=== PATIENT | female | born 1995 | race African-American/Black ===

== ENCOUNTER 2020-04-21 13:18 | Inpatient (IN) | payer MEDICAID, SELFPAY ==
[2020-04-21] VITALS (7 sets, daily range): BP systolic 90–114; BP diastolic 48–68; PULSE 58–85; RESP 14–16; TEMP 36–36.7; O2SAT 90–99; BMI 42.5; BMI 42.6; BMI 35.9
--- NOTE | 2020-04-21 13:52 | ED.VIS.GEN ---
History of Present Illness Chief Complaint: Substance Abuse Informant: Patient Narrative: 24-year-old female with history of fentanyl and heroin abuse presenting for detox. She spoke with [facility] before she came. Patient states that her last use was yesterday however she has been doing a rinse. She believes last time she did it was at 10:00 AM. Patient states she has no significant medical problems. Last detox was in February. Past Medical History - Allergies and Home Meds Allergies/Adverse Reactions: Allergies No Known Allergies Allergy (Verified 04/21/20 13:22) Primary Care Physician: NOT,DEFINED [NON-STAFF] - Prior records reviewed: Yes Past Medical History: - - Patient denies significant medical history Lives: With Family Smoking Status: Unknown if ever smoked Alcohol: None Drugs: Heroin, - - Fentanyl Review of Systems General: Denies: Chills, Fever, Sweats Eyes: Denies: Visual changes - bilaterally, Diplopia ENT: Denies: Rhinorrhea, Sore throat Cardiovascular: Denies: Chest pain, Palpitations Respiratory: Denies: Dyspnea, Cough, Dyspnea on exertion Gastrointestinal: Denies: Abdominal pain, Nausea, Vomiting, Diarrhea, Melena, Hematochezia Genitourinary: Denies: Dysuria, Hematuria, Frequency Musculoskeletal: Denies: Back pain, Extremity Pain Skin: Denies: Rash, Wounds Neurological: Denies: Headache, Weakness, Numbness Psych: Denies: Depression, Anxiety, Suicidal thoughts, Suicidal ideations, -, - Physical Exam Vital Signs/Narrative: Vital Signs Temp Pulse Resp BP Pulse Ox 04/21/20 13:19 96.8 F L 85 16 106/65 95 Inital Vital Signs reviewed: Yes General: Well nourished, No Acute Distress, - Head: Normocephalic, Atraumatic Eyes: Perrl, EOMI ENT: Moist mucous membranes, No rhinorrhea Cardiovascular: Regular rate, Regular rhythm Respiratory: No distress, CTA bilaterally Skin: Normal color, No rash. Negative for: Cyanosis, Diaphoresis Neurological: Alert, Oriented x3, Cranial nerves II-XII grossly intact Psychological: Normal Mood, - - Drowsy but awake and responding to questions. Diagnostic/Tx/Re-eval - Medical Decision Making 24-year-old female presenting for detox of fentanyl and heroin. Patient states her last real use was yesterday however she has been doing no rinse. She states this is where you put water in the container that was holding the drugs and you rinse it around and then inject that. She states her last use of this was 10 AM. When asked why she appears drowsy she states she was up all night with her child. Patient states she spoke to [facility] before coming in she has a plan for outpatient follow-up. Patient discussed with hospitalist who admitted the patient for detox. Hospitalist did request CBC, CMP, EtOH, drug abuse screen. This was ordered. Hospitalist will follow this up on the medical floor. Patient stable on admission. Impression: 1. Opiate abuse 2. For opioid detox ED Disposition - Plan for ED Patient: Referrals: NOT,DEFINED [NON-STAFF] -
--- NOTE | 2020-04-21 14:37 | NURSING ---
122 MED SURG PAINTSIL OPIATE WITHDRAWAL
--- NOTE | 2020-04-21 14:40 | CM.ED ---
SOCIAL WORK Reason for Referral: Substance Abuse- patient requesting detox from heroin. Patient presents to [facility] ER for detox from heroin last use was this morning. Patient met with [facility] earlier and plan was for residential treatment. Patient requires detox prior to treatment. Call to [facility], spoke with Mayte to update on patient's admission. Mayte to update Melita who will be in to assess patient tomorrow. Plan: Admit to [facility], NEWS REPORTER, ROSS LIFT OPERATOR
[2020-04-21 14:50] LABS: Absolute Lymphocyte Count 1.64 X10^3/uL (0.83-4.51); Absolute Neutrophil Count 4.1 X10^3/uL (2.0-7.7); Basophil# 0.03 X10^3/uL; Basophil% 0.4 % (0-1); Eosinophil# 0.02 X10^3/uL; Eosinophils% 0.3 % (0-5); Hematocrit 32.6 % (37-47); Lymphocyte # 1.64 X10^3/ul (4.0); Mean Corp Hgb Conc 30.7 g/dL (32-36); Mean Corpuscular Hgb 27.1 pg (27.0-32.0); Mean Corpuscular Volume 88.3 fL (81-99); Mean Platelet Vol. 12.9 fl (6.2-12.0); Monocyte# 1.04 X10^3/uL; Monocyte% 15.2 % (0-10); NRBC Flagged by Analyzer 0 % (0-5); Neutrophil # 4.09 X10^3/uL (2.7-7.7); Neutrophil % 59.8 % (47-70); Platelet Count 157 K/mm3 (150-450); RBC Distribution Width CV 15.1 % (11.6-14.6); RBC Distribution Width SD 48.9 fl (35.1-43.9); Red Blood Count 3.69 M/mm3 (4.2-5.4); White Blood Count 6.8 K/mm3 (4.4-11.0)
[2020-04-21 15:06] LABS: ALB/GLOB Ratio 0.8 RATIO (0.9-2.4); AST(SGOT) 19 U/L (15-37); Alanine Aminotransfer ALT/SGPT 30 U/L (13-56); Albumin, Serum 3.4 g/dL (3.2-5.0); Alkaline Phosphatase 89 U/L (45-117); Anion Gap 5 (5-15); BUN 10 mg/dL (7-18); BUN/Creat Ratio 13.9 RATIO (10-20); Calcium,Total 8.4 mg/dL (8.5-10.1); Chloride 108 mmol/L (98-107); Creatinine, Serum 0.72 mg/dL (0.55-1.02); EST Glomerular Filtration Rate 107 mL/min (>60); Est Glom Filt Rate - Afr Amer 129 mL/min (>60); Estimated Creatinine Clearance 122.59 ml/min; Glucose 87 mg/dL (74-106); Potassium 3.9 mmol/L (3.5-5.1); Protein, Total 7.4 g/dL (6.4-8.2); Sodium Level 140 mmol/L (136-145)
--- NOTE | 2020-04-21 15:17 | PCM.HP.STD ---
<Divya Aldrich - Last Filed: 04/21/20 15:57> Problem List (1) Opiate abuse, continuous Status: Acute (2) Marijuana abuse Status: Acute History of Present Illness Date of Admission: 04/21/20 Chief Complaint: Opiate withdrawal program The patient is a 24 year old F who presents today for assistance with withdrawing from opioids. Patient states her last full strength use was 3 PM yesterday however this morning she did a rinse. Patient describes this as putting water in the container that held heroin/fentanyl and then injecting this water. Upon entering room patient is lethargic, will occasionally arouse with shaking but immediately falls back asleep. Patient also reports smoking marijuana on a daily basis. Denies use of any other illicit drugs. Patient denies fever, chills, chest pain, shortness of breath, nausea, vomiting, diarrhea. 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 Denies: Chills, Fever, Weight Change HEENT: Denies: Head Aches, Sinus Congestion, Sinus Drainage Cardiovascular: Denies: Chest Pain, Palpitations Respiratory: Denies: Cough, Shortness of breath at rest, Sputum production Gastrointestinal: Denies: Abdominal Pain, Nausea, Vomiting Genitourinary: Denies: Dysuria Musculoskeletal: Denies: Joint Pain, Joint Tenderness Skin: Denies: Rash, Wounds Neurological: Denies: Numbness, Tingling, Focal weakness Psychiatric: Denies: Anxiety, Depression, Homicidal Ideations, Suicidal Ideations Hematologic/ Lymphatic: Denies: Easy Bruising, Easy Bleeding VTE Information - Inpt Only VTE Present on Admission: No VTE Mechan Device Prophylaxis: SCD's, None VTE Pharm Prophylaxis ordered?: No Patient Problems: Active and Suspected Problems Opiate abuse, continuous (Acute) Marijuana abuse (Acute) - Physical Exam Vitals/I&O's: Vital Signs Temp Pulse Resp BP Pulse Ox 97.3 F L 63 14 90/48 L 97 04/21/20 15:08 04/21/20 15:08 04/21/20 15:08 04/21/20 15:08 04/21/20 15:08 Oxygen Delivery Method Room Air Weight: 235 lb 14.314 oz Body Mass Index (BMI) 35.9 General: Oriented x3, Lethargic, Non-Cooperative HEENT: Atraumatic, PERRLA, EOMI, Normocephalic Neck: Supple, No JVD, Negative Carotid Bruits Lungs: Clear to auscultation, Normal air movement Cardiovascular: Regular rate, Regular Rhythm, Normal S1, Normal S2, No murmurs Abdomen: Bowel Sounds Present, Soft, Non Tender Extremities: No edema, Capillary Refill Less than 3 Seconds Skin: No rashes, No breakdown Musculoskeletal: No Tenderness to Palpation of Joints or Extremities Neurological: Cranial nerves II-XII grossly intact Laboratory Results 04/21/20 14:45: WBC 6.8, RBC 3.69 L, Hgb 10.0 L, Hct 32.6 L, MCV 88.3, MCH 27.1, MCHC 30.7 L, RDW Std Deviation 48.9 H, RDW Coeff of Carmen 15.1 H, Plt Count 157, MPV 12.9 H, Immature Gran % (Auto) 0.300, Neut % (Auto) 59.8, Lymph % (Auto) 24.0, [place] % (Auto) 15.2 H, Eos % (Auto) 0.3, Baso % (Auto) 0.4, Absolute Neuts (auto) 4.1, Absolute Lymphs (auto) 1.64, Nucleated RBC % 0 04/21/20 14:45: Sodium 140, Potassium 3.9, Chloride 108 H, Carbon Dioxide 27.0, Anion Gap 5, BUN 10, Creatinine 0.72, Estim Creat Clear Calc 122.59, Est GFR (MDRD) Af Amer 129, Est GFR (MDRD) Non-Af 107, BUN/Creatinine Ratio 13.9, Glucose 87, Calcium 8.4 L, Total Bilirubin 0.50, AST 19, ALT 30, Alkaline Phosphatase 89, Total Protein 7.4, Albumin 3.4, Globulin 4.0, Albumin/Globulin Ratio 0.8 L 04/21/20 14:45: Ethyl Alcohol Pending Current Medications Acetaminophen (Acetaminophen 500 Mg Tablet) 500 mg PO Q4H PRN PRN PRN Reason: Temp > 100.4 F Buprenorphine HCl (Buprenorphine Hcl 2 Mg Tab.Subl) 0 mg SL Q8H ELAINE; Taper Stop: 04/24/20 15:13 Clonidine (Clonidine Hcl 0.1 Mg Tablet) 0.1 mg PO Q8H PRN PRN PRN Reason: RESTLESSNESS Dicyclomine HCl (Dicyclomine 10 Mg Capsule) 20 mg PO Q6H PRN PRN PRN Reason: Abdominal Discomfort Gabapentin (Gabapentin 300 Mg Capsule) 300 mg PO Q8H PRN PRN PRN Reason: moderate to severe anxiety Hydroxyzine Pamoate (Hydroxyzine Rose 25 Mg Capsule) 50 mg PO Q6H PRN PRN PRN Reason: mild anxiety Ibuprofen (Ibuprofen 600 Mg Tablet) 600 mg PO Q8H PRN PRN PRN Reason: PAIN Loperamide HCl (Loperamide 2 Mg Capsule) 2 mg PO Q4H PRN PRN PRN Reason: LOOSE STOOLS Methocarbamol (Methocarbamol 750 Mg Tablet) 1,500 mg PO Q6H PRN PRN PRN Reason: MUSCLE SPASM Nicotine (Nicotine 21 Mg Patch) 21 mg TD DAILY ELAINE Ondansetron HCl (Ondansetron 8 Mg Tablet) 8 mg PO Q8H PRN PRN PRN Reason: NAUSEA Sodium Chloride (0.9% Saline Lock 10 Ml Syringe) 10 - 40 ml IV UD PRN PRN Reason: SALINE FLUSH Trazodone HCl (Trazodone 100 Mg Tablet) 100 mg PO QHS PRN PRN PRN Reason: INSOMNIA Assessment/Plan All Active Problems Opiate abuse, continuous (Acute) Marijuana abuse (Acute) 1. Opioid dependence-we will initiate buprenorphine taper and supportive meds per protocol. As patient is currently lethargic and hard to arouse we will give Narcan 2 mg intranasally x1 and obtain ABG. DVT prophylaxis-Not indicated This patient was seen by JASMEET Wagner under the supervision of Dr. Bunn. <Jayshree Bunn - Last Filed: 04/21/20 20:03> History of Present Illness The patient is a 24 year old F [] Past Medical History Allergies No Known Allergies Allergy (Verified 04/21/20 13:22) - Physical Exam Vitals/I&O's: Vital Signs Temp Pulse Resp BP Pulse Ox 97.7 F L 72 16 114/68 90 04/21/20 19:51 04/21/20 19:51 04/21/20 19:51 04/21/20 19:51 04/21/20 19:51 Oxygen Delivery Method Room Air Weight: 107 kg Body Mass Index (BMI) 35.9 Intake and Output for Last 24 Hours 04/19/20 04/20/20 04/21/20 23:59 23:59 23:59 Intake Total 0 / 0 Output Total 0 / 0 Balance 0 / 0 Laboratory Results 04/21/20 14:10: Urine Opiates Screen NEGATIVE, Urine Methadone Screen NEGATIVE, Ur Barbiturates Screen NEGATIVE, Ur Phencyclidine Scrn NEGATIVE, Ur Amphetamines Screen NEGATIVE, U Methamphetamin-MDMA NEGATIVE, U Benzodiazepines Scrn NEGATIVE, Urine Cocaine Screen POSITIVE H, U Cannabinoids Screen NEGATIVE, Ur Drug Screen Comment 04/21/20 14:45: WBC 6.8, RBC 3.69 L, Hgb 10.0 L, Hct 32.6 L, MCV 88.3, MCH 27.1, MCHC 30.7 L, RDW Std Deviation 48.9 H, RDW Coeff of Carmen 15.1 H, Plt Count 157, MPV 12.9 H, Immature Gran % (Auto) 0.300, Neut % (Auto) 59.8, Lymph % (Auto) 24.0, [place] % (Auto) 15.2 H, Eos % (Auto) 0.3, Baso % (Auto) 0.4, Absolute Neuts (auto) 4.1, Absolute Lymphs (auto) 1.64, Nucleated RBC % 0 04/21/20 14:45: Sodium 140, Potassium 3.9, Chloride 108 H, Carbon Dioxide 27.0, Anion Gap 5, BUN 10, Creatinine 0.72, Estim Creat Clear Calc 122.59, Est GFR (MDRD) Af Amer 129, Est GFR (MDRD) Non-Af 107, BUN/Creatinine Ratio 13.9, Glucose 87, Calcium 8.4 L, Total Bilirubin 0.50, AST 19, ALT 30, Alkaline Phosphatase 89, Total Protein 7.4, Albumin 3.4, Globulin 4.0, Albumin/Globulin Ratio 0.8 L 04/21/20 14:45: Ethyl Alcohol < 3.0 04/21/20 16:19: Specimen Type ART, Sample Site R Radial, pH 7.36, Bicarbonate Actual 27.5 H, Total CO2 29, Base Excess 2, O2 Saturation 97, ABG pCO2 48.3 H, ABG pO2 90, Barney Test Positive, O2 Delivery Device Room Air Current Medications Acetaminophen (Acetaminophen 500 Mg Tablet) 500 mg PO Q4H PRN PRN PRN Reason: Temp > 100.4 F Buprenorphine HCl (Buprenorphine Hcl 2 Mg Tab.Subl) 0 mg SL Q8H ELAINE; Taper Stop: 04/24/20 15:13 Clonidine (Clonidine Hcl 0.1 Mg Tablet) 0.1 mg PO Q8H PRN PRN PRN Reason: RESTLESSNESS Dicyclomine HCl (Dicyclomine 10 Mg Capsule) 20 mg PO Q6H PRN PRN PRN Reason: Abdominal Discomfort Gabapentin (Gabapentin 300 Mg Capsule) 300 mg PO Q8H PRN PRN PRN Reason: moderate to severe anxiety Hydroxyzine Pamoate (Hydroxyzine Rose 25 Mg Capsule) 50 mg PO Q6H PRN PRN PRN Reason: mild anxiety Ibuprofen (Ibuprofen 600 Mg Tablet) 600 mg PO Q8H PRN PRN PRN Reason: PAIN 1-10 Loperamide HCl (Loperamide 2 Mg Capsule) 2 mg PO Q4H PRN PRN PRN Reason: LOOSE STOOLS Methocarbamol (Methocarbamol 750 Mg Tablet) 1,500 mg PO Q6H PRN PRN PRN Reason: MUSCLE SPASM Nicotine (Nicotine 21 Mg Patch) 21 mg TD DAILY ELAINE Ondansetron HCl (Ondansetron 8 Mg Tablet) 8 mg PO Q8H PRN PRN PRN Reason: NAUSEA Sodium Chloride (0.9% Saline Lock 10 Ml Syringe) 10 - 40 ml IV UD PRN PRN Reason: SALINE FLUSH Trazodone HCl (Trazodone 100 Mg Tablet) 100 mg PO QHS PRN PRN PRN Reason: INSOMNIA Assessment/Plan This patient was seen in conjunction with Miranda Matias NP. I have independently interviewed and examined the patient and reviewed pertinent historical, laboratory, and other data. Please refer to her note for patient's presentation, findings, and recommendations. 24-year-old with past medical history of polysubstance use comes in requesting for stabilization from acute opioid withdrawal. Patient admits to using heroin/fentanyl. She reportedly did a 'heroin rinse morning. Patient was reportedly very lethargic in the emergency department. Patient denies any use of cocaine. Her urine tox was positive for cocaine. At the time of being seen, she was arousable. She denied any complaints at the moment. She stated that she did not sleep well the night before. Vitals were reviewed -stable Physical Exam: Gen: Lethargic, easily arousable not pale, not jaundiced, alert oriented x3 CVS:HS I +II, regular, no murmurs RESP: CTA GI: BS present and normal, nontender, no palpable organs EXT:No edema Labs reviewed: ASSESSMENT: 1. Chronic opioid dependence with impending acute opiate withdrawal 2. Polysubstance use disorder, advised to quit Meds reviewed Plan: Continue to monitor on the buprenorphine withdrawal protocol. Inpatient E&M: 78067 Init Hosp L2
[2020-04-21 15:19] LABS: Alcohol, Blood (Medical)-Serum < 3.0 mg/dL
[2020-04-21 15:36] LABS: Amphetamine Urine VISTA NEGATIVE (<1000 ng/mL); Barbiturate Urine VISTA NEGATIVE (< 200 ng/mL); Benzodiazepine Urine VISTA NEGATIVE (< 200 ng/mL); Cocaine Urine VISTA POSITIVE (< 300 ng/mL); Ecstacy Urine VISTA NEGATIVE (< 500 ng/mL); Methadone Urine VISTA NEGATIVE (< 300 ng/mL); PCP Urine VISTA NEGATIVE (< 25 ng/mL); THC Urine VISTA NEGATIVE (< 50 ng/mL); Vista UDS pH Range 6
--- NOTE | 2020-04-21 15:41 | NURSING ---
COWS assessment not completed due to patient being asleep per orders
[2020-04-21 16:25] LABS: Allen Test Positive; Base Excess 2 mmol/L (-2 to +2); Bicarbonate 27.5 mmol/L (22-26); Blood Gas Specimen Type ART; O2 Delivery Device Room Air; PO2 90 mmHG (75-100); SITE R Radial; SO2 97 % (95-99); Total Carbon Dioxide 29 mmol/L; pCO2 48.3 mmHg (35-45); pH 7.36 (7.35-7.45)
[2020-04-21] MEDS: Methocarbamol 750 MG Tablet 1500 MG PO (23:21)
[2020-04-22 01:58] VITALS: BP 128/79; PULSE 81; RESP 18; TEMP 37.1; O2SAT 100
[2020-04-22] MEDS: Dicyclomine 10 MG Capsule 20 MG PO (02:05)
[2020-04-22] MEDS: Ibuprofen 600 MG Tablet PO (02:06)
[2020-04-22] MEDS: Ondansetron 8 MG Tablet PO ×2 (02:06→20:38)
[2020-04-22] MEDS: hydrOXYzine PAM 25 MG Capsule 50 MG PO ×2 (02:06→21:47)
[2020-04-22] MEDS: cloNIDine HCl 0.1 MG Tablet PO (02:07)
[2020-04-22] MEDS: traZODone 100 MG Tablet PO ×2 (02:19→21:48)
[2020-04-22 08:00] VITALS: BP 100/60; PULSE 64; RESP 16; TEMP 36.6; O2SAT 96
--- NOTE | 2020-04-22 08:13 | PN_ITS ---
Subjective: Chief complaint: Follow-up after admission for acute opioid withdrawal. Patient seen and examined. No acute events overnight. This morning, she was sleepy. She was not willing to wake up to be examined. After I informed the patient that I have to talk to her and examined her, she woke up and she allowed me to examine her. She mentioned that she could not sleep last night and she is trying to sleep this morning. Her vital signs are stable. - Physical Exam Vitals/I&O's: Vital Signs Temp Pulse Resp BP Pulse Ox 98.8 F 81 18 128/79 H 100 04/22/20 01:58 04/22/20 01:58 04/22/20 01:58 04/22/20 01:58 04/22/20 01:58 Oxygen Delivery Method Room Air Weight: 235 lb 14.314 oz Body Mass Index (BMI) 35.9 Intake and Output for Last 24 Hours 04/20/20 04/21/20 04/22/20 23:59 23:59 23:59 Intake Total 200 / 200 200 / 200 Output Total 0 / 0 Balance 200 / 200 200 / 200 General: Alert, Oriented x3, Cooperative, No apparent distress HEENT: Atraumatic, PERRLA, EOMI, Normocephalic Oral: Moist Mucosa, No Gingival or Mucosal Lesions/ Ulcerations Neck: Supple, No JVD, Negative Carotid Bruits, Trachea Midline, Thyroid Normal Size and Texture Lungs: Clear to auscultation, No rhonchi, No wheeze, No rales Cardiovascular: Regular rate, Regular Rhythm, Normal S1, Normal S2, PMI Normal Abdomen: Bowel Sounds Present, Soft, Non Tender, Non-Distended, No Hepato- splenomegaly Extremities: No clubbing, No cyanosis, No edema Skin: No rashes, No breakdown Lymphatic: No Cervical, Supraclavicular, or Inguinal Adenopathy Neurological: Cranial nerves II-XII grossly intact, Neuro grossly intact Psych/Mental Status: Appropriate, Flat Affect Laboratory Results 04/21/20 14:10: Urine Opiates Screen NEGATIVE, Urine Methadone Screen NEGATIVE, Ur Barbiturates Screen NEGATIVE, Ur Phencyclidine Scrn NEGATIVE, Ur Amphetamines Screen NEGATIVE, U Methamphetamin-MDMA NEGATIVE, U Benzodiazepines Scrn NEGATIVE, Urine Cocaine Screen POSITIVE H, U Cannabinoids Screen NEGATIVE, Ur Drug Screen Comment 04/21/20 14:45: WBC 6.8, RBC 3.69 L, Hgb 10.0 L, Hct 32.6 L, MCV 88.3, MCH 27.1, MCHC 30.7 L, RDW Std Deviation 48.9 H, RDW Coeff of Carmen 15.1 H, Plt Count 157, MPV 12.9 H, Immature Gran % (Auto) 0.300, Neut % (Auto) 59.8, Lymph % (Auto) 24.0, [place] % (Auto) 15.2 H, Eos % (Auto) 0.3, Baso % (Auto) 0.4, Absolute Neuts (auto) 4.1, Absolute Lymphs (auto) 1.64, Nucleated RBC % 0 04/21/20 14:45: Sodium 140, Potassium 3.9, Chloride 108 H, Carbon Dioxide 27.0, Anion Gap 5, BUN 10, Creatinine 0.72, Estim Creat Clear Calc 122.59, Est GFR (MDRD) Af Amer 129, Est GFR (MDRD) Non-Af 107, BUN/Creatinine Ratio 13.9, Glucose 87, Calcium 8.4 L, Total Bilirubin 0.50, AST 19, ALT 30, Alkaline Phosphatase 89, Total Protein 7.4, Albumin 3.4, Globulin 4.0, Albumin/Globulin Ratio 0.8 L 04/21/20 14:45: Ethyl Alcohol < 3.0 04/21/20 16:19: Specimen Type ART, Sample Site R Radial, pH 7.36, Bicarbonate Actual 27.5 H, Total CO2 29, Base Excess 2, O2 Saturation 97, ABG pCO2 48.3 H, ABG pO2 90, Barney Test Positive, O2 Delivery Device Room Air Current Medications Acetaminophen (Acetaminophen 500 Mg Tablet) 500 mg PO Q4H PRN PRN PRN Reason: Temp > 100.4 F Buprenorphine HCl (Buprenorphine Hcl 2 Mg Tab.Subl) 4 mg SL Q8H ELAINE; Taper Stop: 04/24/20 22:29 Last Admin: 04/22/20 05:30 Dose: Not Given Documented by: Clonidine (Clonidine Hcl 0.1 Mg Tablet) 0.1 mg PO Q8H PRN PRN PRN Reason: RESTLESSNESS Last Admin: 04/22/20 02:07 Dose: 0.1 mg Documented by: Dicyclomine HCl (Dicyclomine 10 Mg Capsule) 20 mg PO Q6H PRN PRN PRN Reason: Abdominal Discomfort Last Admin: 04/22/20 02:05 Dose: 20 mg Documented by: Gabapentin (Gabapentin 300 Mg Capsule) 300 mg PO Q8H PRN PRN PRN Reason: moderate to severe anxiety Hydroxyzine Pamoate (Hydroxyzine Rose 25 Mg Capsule) 50 mg PO Q6H PRN PRN PRN Reason: mild anxiety Last Admin: 04/22/20 02:06 Dose: 50 mg Documented by: Ibuprofen (Ibuprofen 600 Mg Tablet) 600 mg PO Q8H PRN PRN PRN Reason: PAIN 1-10 Last Admin: 04/22/20 02:06 Dose: 600 mg Documented by: Loperamide HCl (Loperamide 2 Mg Capsule) 2 mg PO Q4H PRN PRN PRN Reason: LOOSE STOOLS Methocarbamol (Methocarbamol 750 Mg Tablet) 1,500 mg PO Q6H PRN PRN PRN Reason: MUSCLE SPASM Last Admin: 04/21/20 23:21 Dose: 1,500 mg Documented by: Nicotine (Nicotine 21 Mg Patch) 21 mg TD DAILY ELAINE Ondansetron HCl (Ondansetron 8 Mg Tablet) 8 mg PO Q8H PRN PRN PRN Reason: NAUSEA Last Admin: 04/22/20 02:06 Dose: 8 mg Documented by: Sodium Chloride (0.9% Saline Lock 10 Ml Syringe) 10 - 40 ml IV UD PRN PRN Reason: SALINE FLUSH Trazodone HCl (Trazodone 100 Mg Tablet) 100 mg PO QHS PRN PRN PRN Reason: INSOMNIA Last Admin: 04/22/20 02:19 Dose: 100 mg Documented by: Medical Necessity - Tobacco Use Tobacco Use: Non-smoker, Secondhand Assessment/Plan All Active Problems Acute opioid withdrawal (Acute) This is a 24 years old female patient presented to the emergency room requesting admission for acute opioid withdrawal for medical stabilization. #1 acute opiate withdrawal: She is on tapering Subutex, as needed Catapres, Tylenol, Bentyl, Neurontin, Vistaril, Imodium, methocarbamol and trazodone. Her vital signs are stable. Routine blood work was remarkable for hemoglobin of 10 g/dL which is chronic, otherwise normal. LFT was unremarkable. Urine drug screen was positive for cocaine. Blood alcohol level was less than 3. Plan to continue same treatment, consult [facility] program. #2 tobacco abuse: NicoDerm patch. #3 DVT prophylaxis: Low risk patient, no prophylaxis indicated. This note was generated with [employer] dictation software. It may contain incorrect words, spelling, and punctuation that were not noted in checking the note before signing. Inpatient E&M: 44181 Subs Hosp L2
--- NOTE | 2020-04-22 09:20 | ADDICTION ---
This typewriters functional tester attempted to meet with PT in her room. PT woke briefly but did not answer verbally respond outside of moans and grunts. This typewriters functional tester will attempt to meet with PT at next visit on 04.23.20.
--- NOTE | 2020-04-22 10:43 | CASEMGMT ---
Mary from [facility] said she arranged for patient to get picked up on 04-26 at 10a. She needs to be at the main entrance of [facility] at 10a. Plan: d/c to residential with [facility] assisting. She will get picked up on 04-26 at 10 via [facility]. Esme DOMINIQUE MSW
[2020-04-22 14:00] VITALS: BP 118/62; PULSE 60; RESP 16; TEMP 36.7; O2SAT 96
[2020-04-22] MEDS: Methocarbamol 750 MG Tablet 1500 MG PO (18:54)
[2020-04-22] MEDS: Gabapentin 300 MG Capsule PO (18:54)
[2020-04-22 20:28] VITALS: BP 117/55; PULSE 109; RESP 18; TEMP 37.3; O2SAT 95
--- NOTE | 2020-04-22 20:40 | NURSING ---
Addendum entered by Kassandra Rabago 04/22/20 20:44: Pt states Maybe I'll take it (subutex) tomorrow. Original Note: Pt educated on Subutex and how it improves withdrawal symptoms. Pt refusing to take Subutex stating it has made her feel sick in the past/ PRN's offered; pt agreeable to taking zofran at this time. Will continue to monitor.
[2020-04-22] MEDS: Acetaminophen 500 MG Tablet PO (21:47)
[2020-04-23 02:42] VITALS: BP 92/55; PULSE 72; RESP 16; TEMP 37.1; O2SAT 97
[2020-04-23] MEDS: Methocarbamol 750 MG Tablet 1500 MG PO (05:42)
--- NOTE | 2020-04-23 05:48 | NURSING ---
Pt encouraged to take 0630 dose of Subutex; pt refused dose. Pt c/o muscle aches to BLE- methocarbamol offered and given.
[2020-04-23 08:14] VITALS: BP 94/56; PULSE 67; RESP 16; TEMP 36.7; O2SAT 97
--- NOTE | 2020-04-23 09:25 | ADDICTION ---
This hand sign writer met with PT in her room to complete ASAM, MSE, DUDIT assessments and to plan for discharge. All assessments completed, faxed to [facility] and placed in PT's chart. PT to discharge on 04/26 with a direct admit planned to [facility]. This hand sign writer spoke with PT regarding her refusal of detox medication and the impacts of not following the [facility] program rules. PT reports that she has been put in precipitated withdrawal while using Subutex in the past and does not want to use this medication at this time. This hand sign writer informed PT that [facility] informed this hand sign writer that her hospitalist may not allow her to stay until Sunday if she is not following protocol, which also may impact her ability to direct admit to [facility]. PT states that she does not want to take her Subutex and understands the potential consequences.
--- NOTE | 2020-04-23 10:22 | NURSING ---
SPOKE TO PT ABOUT REFUSING SUBUTEX PART OF TREATMENT. INFORMED THAT IF SHE CONTINUES TO REFUSE SUBUTEX SHE CANNOT STAY AT THE HOSPITAL PER DR SAUCEDO. PT ASKING IF SHE CAN STILL GO TO [facility]IDENT[facility] IF SHE DOES NOT STAY AT HOSP. PT INFORMED THAT HER ACCEPTANCE MAY NOT BE GUARANTEED. PLACED CALL TO K[facility]ARI WITH [facility] TO CLARIFY. AWAITING CALL BACK. DR SAUCEDO SPOKE TO PT WELL ABOUT COMPLIANCE WITH TREATMENT IN HOSPITAL.
--- NOTE | 2020-04-23 12:20 | DS.PCM_ITS ---
Discharge Date and Diagnosis Date of Admission: 04/21/20 Date of Discharge: 04/23/20 - Primary Discharge Diagnosis Acute Problems: Acute opioid withdrawal admitted for medical stabilization, he left the hospital AGAINST MEDICAL ADVICE. - Secondary Discharge Diagnosis Chronic Problems: Chronic Problems Opiate abuse, continuous (Chronic) Marijuana abuse (Chronic) Hospital Course and Treatment Operations: None Procedures: None Summary of Care Provided: The patient is a 24 year old F presented to the emergency room requesting admission for acute opioid withdrawal for medical stabilization. Patient was admitted to the [facility] floor and started on opioid withdrawal protocol with tapering Subutex, as needed Catapres, Tylenol, Bentyl, Neurontin, Vistaril, Imodium, methocarbamol and trazodone. Routine blood work was remarkable for chronic anemia, otherwise normal. Her urine drug screen was positive for cocaine. Blood alcohol level was less than 3. During this hospital stay, patient refused to take Subutex after admission and she thinks that she gets significant withdrawal symptoms from Subutex if she started taking it. She mentioned that in the past, she has used Subutex and she did get withdrawal symptoms on stopping it. Initially, she was evaluated by [address] [place] [address] and the plan was to keep the patient in the hospital and this coming Sunday and she will go to inpatient residential treatment at [address] [place] [address]. Since patient has been refusing to take Subutex, she was given the option to take Subutex, stay until Sunday and go to the [address] [place] [address] residential treatment or to leave AMA today and go to the residential treatment this coming Sunday, April 26, 2020. Patient decided to leave the hospital against AMA, and refused to take Subutex and she decided to go to inpatient residential treatment at [address] [place] [address] this coming Sunday. Patient left the hospital AGAINST MEDICAL ADVICE. - Physical Exam Vitals/I&O's: Vital Signs Temp Pulse Resp BP Pulse Ox 98.1 F 67 16 94/56 L 97 04/23/20 08:14 04/23/20 08:14 04/23/20 08:14 04/23/20 08:14 04/23/20 08:14 Oxygen Delivery Method Room Air Weight: 235 lb 14.314 oz Body Mass Index (BMI) 35.9 Intake and Output for Last 24 Hours 04/21/20 04/22/20 04/23/20 23:59 23:59 23:59 Intake Total 200 / 200 200 / 500 300 / 300 Output Total 0 / 0 Balance 200 / 200 200 / 500 300 / 300 General: Alert, Oriented x3, Cooperative, No apparent distress HEENT: Atraumatic, PERRLA, EOMI, Normocephalic Oral: Moist Mucosa, No Gingival or Mucosal Lesions/ Ulcerations Neck: Supple, No JVD, Negative Carotid Bruits, Trachea Midline, Thyroid Normal Size and Texture Lungs: Clear to auscultation, Normal air movement, No rhonchi, No wheeze, No rales Cardiovascular: Regular rate, Regular Rhythm, Normal S1, Normal S2, PMI Normal Abdomen: Bowel Sounds Present, Soft, Non Tender, Non-Distended, No Hepato- splenomegaly Extremities: No clubbing, No cyanosis, No edema Skin: No rashes, No breakdown Lymphatic: No Cervical, Supraclavicular, or Inguinal Adenopathy Neurological: Cranial nerves II-XII grossly intact, Neuro grossly intact Psych/Mental Status: Normal Affect, Appropriate Current Medications Acetaminophen (Acetaminophen 500 Mg Tablet) 500 mg PO Q4H PRN PRN PRN Reason: Temp > 100.4 F Last Admin: 04/22/20 21:47 Dose: 500 mg Documented by: Buprenorphine HCl (Buprenorphine Hcl 2 Mg Tab.Subl) 2 mg SL Q8H ELAINE; Taper Stop: 04/24/20 22:29 Last Admin: 04/23/20 05:42 Dose: Not Given Documented by: Clonidine (Clonidine Hcl 0.1 Mg Tablet) 0.1 mg PO Q8H PRN PRN PRN Reason: RESTLESSNESS Last Admin: 04/22/20 02:07 Dose: 0.1 mg Documented by: Dicyclomine HCl (Dicyclomine 10 Mg Capsule) 20 mg PO Q6H PRN PRN PRN Reason: Abdominal Discomfort Last Admin: 04/22/20 02:05 Dose: 20 mg Documented by: Gabapentin (Gabapentin 300 Mg Capsule) 300 mg PO Q8H PRN PRN PRN Reason: moderate to severe anxiety Last Admin: 04/22/20 18:54 Dose: 300 mg Documented by: Hydroxyzine Pamoate (Hydroxyzine Rose 25 Mg Capsule) 50 mg PO Q6H PRN PRN PRN Reason: mild anxiety Last Admin: 04/22/20 21:47 Dose: 50 mg Documented by: Ibuprofen (Ibuprofen 600 Mg Tablet) 600 mg PO Q8H PRN PRN PRN Reason: PAIN 1-10 Last Admin: 04/22/20 02:06 Dose: 600 mg Documented by: Loperamide HCl (Loperamide 2 Mg Capsule) 2 mg PO Q4H PRN PRN PRN Reason: LOOSE STOOLS Methocarbamol (Methocarbamol 750 Mg Tablet) 1,500 mg PO Q6H PRN PRN PRN Reason: MUSCLE SPASM Last Admin: 04/23/20 05:42 Dose: 1,500 mg Documented by: Nicotine (Nicotine 21 Mg Patch) 21 mg TD DAILY ELAINE Last Admin: 04/23/20 08:22 Dose: Not Given Documented by: Ondansetron HCl (Ondansetron 8 Mg Tablet) 8 mg PO Q8H PRN PRN PRN Reason: NAUSEA Last Admin: 04/22/20 20:38 Dose: 8 mg Documented by: Sodium Chloride (0.9% Saline Lock 10 Ml Syringe) 10 - 40 ml IV UD PRN PRN Reason: SALINE FLUSH Trazodone HCl (Trazodone 100 Mg Tablet) 100 mg PO QHS PRN PRN PRN Reason: INSOMNIA Last Admin: 04/22/20 21:48 Dose: 100 mg Documented by: Home Medications: Medications to take at Discharge NK 04/21/20 Primary Care Physician: NOT,DEFINED [NON-STAFF] - Disposition: Against Medical Advice Minutes spent on discharge:: 26 Patient Condition:: Stable Medical Necessity - Tobacco Use Tobacco Use: Non-smoker, Secondhand Meaningful Use Info Meaningful Use Diagnoses (Choose all that apply): None applicable Inpatient E&M: 08958 [facility]
== END 2020-04-23 12:45 | disposition left against medical advice (07) | DRG 770 ==
LOC: ED 14:12 → PCU 14:34
PROVIDERS: Admitting Provider Internal Medicine; Emergency Provider Student in an Organized Health Care Education/Training Program; Visit Provider Hospitalist
DX: F11.23 Opioid dependence with withdrawal (principal); Z53.29 Procedure and treatment not carried out because of patient's decision for other reasons; R53.83 Other fatigue; F12.10 Cannabis abuse, uncomplicated
CPT/HCPCS: 36600; 80053; 80307; 82077; 82803; 85025; 99283

== ENCOUNTER 2020-05-04 15:24 | Observation (INO) | payer MEDICAID, SELFPAY ==
[2020-04-21 15:02] VITALS: BMI 35.9
[2020-05-04 15:25] VITALS: BP 122/82; PULSE 89; RESP 18; TEMP 35.9; O2SAT 97; BMI 37.2
--- NOTE | 2020-05-04 15:56 | ED.VIS.GEN ---
History of Present Illness Chief Complaint: Substance Abuse Informant: Patient Onset: Days Context: Sudden Onset Timing: Continuous Quality: IV drug use, heroin Location: Not applicable Current Severity: Moderate Maximum Severity: Moderate Worsened by: Noncompliance Relieved by: Not applicable Associated Symptoms: No symptoms of withdrawal Narrative: Patient is a 24-year-old IV drug user. She states she injects her phone. She was in detox for 3 days because she was going to treatment patient continued care. Patient also recommended that they take her. She was brought in by percentile for age. Patient still has a 2 take medication for 30 days per treatment plan. Patient is uncertain why she was brought here. Patient recently used. She denies fever, chills night sweats. She denies history of heart murmur or SBE. She has never been tested. Patient 46-year-old hepatitis. She has history of anemia. She denies abdominal pain, nausea, vomiting or diarrhea. Denies dysuria, frequency, urgency or hematuria. Prior similar symptoms: Yes Recent Illness/Hospitalization: Yes - Past Medical History (1) Marijuana abuse Status: Chronic (2) Opiate abuse, continuous Status: Chronic Past Medical History - Allergies and Home Meds Allergies/Adverse Reactions: Allergies No Known Allergies Allergy (Verified 05/04/20 15:24) Primary Care Physician: Care Physician,No Primary [Primary Care Provider] - Prior records reviewed: Yes Surgical History: no surgical history Lives: Alone Alcohol: Rare Drugs: Heroin, Marijuana - Family History Maternal Family History: Reports: No pertinent history Paternal Family History: Reports: No pertinent history Review of Systems General: Denies: Chills, Fever, Malaise, Sweats Eyes: Denies: Visual changes - bilaterally, Blurred Vision - bilaterally, Diplopia ENT: Denies: Rhinorrhea, Sore throat Cardiovascular: Denies: Chest pain, Palpitations Respiratory: Denies: Dyspnea, Cough, Dyspnea on exertion Gastrointestinal: Denies: Abdominal pain, Nausea, Vomiting, Diarrhea, Melena, Hematochezia Genitourinary: Denies: Dysuria, Hematuria, Frequency Musculoskeletal: Denies: Back pain, Extremity Pain Skin: Reports: - - Old and fresh track almendarez. Denies: Rash, Abscess, Wounds Neurological: Denies: Headache, Weakness, Numbness Hematologic: Denies: Easy bruising, Easy bleeding Physical Exam Vital Signs/Narrative: Vital Signs Temp Pulse Resp BP Pulse Ox 03/30/21 15:25 96.7 F L 89 18 122/82 H 97 Inital Vital Signs reviewed: Yes General: Well nourished, Well developed, Obese, No Acute Distress Head: Normocephalic, Atraumatic Eyes: Perrl, EOMI ENT: Moist mucous membranes, No rhinorrhea Neck: Supple, Nontender Cardiovascular: Regular rate, Regular rhythm, No murmurs Respiratory: No distress, CTA bilaterally, Chest nontender Abdomen: Soft, Nontender, Nondistended, Normal bowel sounds Back: Nontender, Normal Inspection Extremities: Nontender, No edema, - - Track almendarez Skin: Normal color, No rash Neurological: Alert, Oriented x3, Cranial nerves II-XII grossly intact, Normal Strength, Normal Sensation Psychological: Normal affect, Normal Mood Diagnostic/Tx/Re-eval - Medical Decision Making Patient states she does not wish to be here. She states she was brought here. She is not sure why she was brought here. Case management was consulted to determine why she was brought here and what the plan is since patient has no desire to be here or to go through detox. Patient apparently had a positive urine tox for benzo which she did not have last week, and fentanyl. Last week her talk screen was positive for cocaine only. Patient does not want treatment with Subutex. Awaiting callback from hospitalist to determine if there is any other treatment option for opiate withdrawal. Spoke with admitting physician. Subutex is the drug used for opiates. Since patient is unwilling to take this she will be discharged to home. ED Disposition - Plan for ED Patient: Disposition: Home or Assisted Living Diagnosis: Opiate dependence, continuous, Cocaine use, History of benzodiazepine use Instructions: ED Opiate Abuse, ED Drug Abuse Referrals: Care Physician,No Primary [Primary Care Provider] - [facility] [STAFF PHYSICIAN] - As soon as possible
[2020-05-04 17:28] LABS: ALB/GLOB Ratio 0.9 RATIO (0.9-2.4); AST(SGOT) 23 U/L (15-37); Alanine Aminotransfer ALT/SGPT 26 U/L (13-56); Albumin, Serum 3.6 g/dL (3.2-5.0); Alkaline Phosphatase 99 U/L (45-117); Anion Gap 5 (5-15); BUN 9 mg/dL (7-18); BUN/Creat Ratio 13.1 RATIO (10-20); Calcium,Total 8.9 mg/dL (8.5-10.1); Chloride 105 mmol/L (98-107); Creatinine, Serum 0.69 mg/dL (0.55-1.02); EST Glomerular Filtration Rate 112 mL/min (>60); Est Glom Filt Rate - Afr Amer 136 mL/min (>60); Estimated Creatinine Clearance 127.92 ml/min; Globulin 4.2 g/dL (2.2-4.2); Glucose 84 mg/dL (74-106); Potassium 3.8 mmol/L (3.5-5.1); Protein, Total 7.8 g/dL (6.4-8.2); Sodium Level 138 mmol/L (136-145)
--- NOTE | 2020-05-04 17:41 | ED.RN ---
[facility] brought pt from residential community and wanting pt to do detox again. per pt doesnt want subutex while here d/t making her feel sicker cm involved and pt basically homeless with 9month old if doesnt stay for ramp program
--- NOTE | 2020-05-04 18:10 | CM.ED ---
SOCIAL WORK Referral Source: Dr. Harvey Reason for Consult: Substance Abuse-Detox Patient presents by [facility] for detox. Patient was to be admitted to residential. Per patient, I tested dirty and have to do detox. This worker spoke with Chantal and Anson from [facility]. Patient concerned about taking Subutex as last time she was here it made things worse. Nursing educated patient on being honest with symptoms. It is believed that patient's last use was today. Per Chantal, patient tested positive for fentanyl, opiates, and benzos. Patient in agreement with plan for detox as she wishes to complete treatment through residential program at [facility]. Dr. Harvey updated on the above. [facility] Treatment Navigator, Anson updated on patient's admission to [facility]. Plan: Admit to [facility] Jennie Pierre MSW, [employer]
[2020-05-04 18:13] VITALS: BP 136/102; PULSE 101; RESP 16; O2SAT 97
[2020-05-04 18:20] VITALS: BP 136/102; PULSE 101; RESP 16; TEMP 35.9; O2SAT 97
--- NOTE | 2020-05-04 18:26 | NURSING ---
MED SURG ASHAIMEE OPIATE DEPENDENCE
--- NOTE | 2020-05-04 18:33 | PCM.HP.STD ---
<Divya Aldrich - Last Filed: 05/04/20 18:33> Problem List (1) Acute opioid withdrawal Status: Acute (2) Opiate dependence, continuous Status: Acute (3) Marijuana abuse Status: Chronic History of Present Illness Date of Admission: 05/04/20 Chief Complaint: Opioid withdrawal, desire for detoxification The patient is a 24 year old F presents today with a desire for detoxification from opioids. Patient reports that her last full strength use was at 2 AM this morning however she did a rinse at 9 AM. Patient is currently requesting that she does not receive Subutex as last time she went through detox it caused her to immediately go into withdrawals. Patient is requesting that she only has supportive medications for symptom management at this time. Patient recently left AMA while completing detox and went to [facility] for inpatient rehab where reportedly she was found to be using and was told that if she did not come back to the hospital and complete detox that she would be kicked out of the inpatient unit. Patient is agreeable at this time to completing program which is a condition of her going to [facility] for long-term inpatient rehab. Discussed with patient Subutex and that should she change her mind at any time we could order it for her to help with symptom management. Patient verbalized understanding. Patient complains of chills, however she denies other symptoms of withdrawal. Past Medical History Past Medical History (Chronic Problems): Chronic Problems Opiate abuse, continuous (Chronic) Marijuana abuse (Chronic) Allergies No Known Allergies Allergy (Verified 05/04/20 15:24) Home Medications: Ambulatory Orders Medication Instructions Recorded Acyclovir 400 mg PO TID 05/04/20 Surgical History: no surgical history Psychiatric History: No pertinent psych hx ADDICTION MEDICINE PHYSICIAN History: No pertinent ADDICTION MEDICINE PHYSICIAN history Lives: Alone Smoking Status: Light Smoker (<10/day) Tobacco Use: Cigarettes, - Alcohol: Rare Drugs: Heroin, Marijuana - *Family History Maternal History Items: No pertinent history Paternal History Items: No pertinent history Review of Systems Constitutional: Reports: Chills. Denies: Fever, Weight Change HEENT: Denies: Head Aches, Sinus Congestion, Sinus Drainage Cardiovascular: Denies: Chest Pain, Palpitations Respiratory: Denies: Cough, Shortness of breath at rest, Sputum production Gastrointestinal: Denies: Abdominal Pain, Nausea, Vomiting Genitourinary: Denies: Dysuria Musculoskeletal: Denies: Joint Pain, Joint Tenderness Skin: Denies: Rash, Wounds Neurological: Denies: Numbness, Tingling, Focal weakness Psychiatric: Denies: Anxiety, Depression, Homicidal Ideations, Suicidal Ideations Hematologic/ Lymphatic: Denies: Easy Bruising, Easy Bleeding VTE Information - Inpt Only VTE Present on Admission: No VTE Mechan Device Prophylaxis: None VTE Pharm Prophylaxis ordered?: No Patient Problems: Active and Suspected Problems Opiate dependence, continuous (Acute) Cocaine use (Acute) History of benzodiazepine use (Acute) Acute opioid withdrawal (Acute) - Physical Exam Vitals/I&O's: Vital Signs Temp Pulse Resp BP Pulse Ox 96.7 F L 101 H 16 136/102 H 97 05/04/20 18:20 05/04/20 18:20 05/04/20 18:20 05/04/20 18:20 05/04/20 18:20 Oxygen Delivery Method Room Air Weight: 245 lb Body Mass Index (BMI) 37.2 General: Alert, Oriented x3, Cooperative HEENT: Atraumatic, PERRLA, EOMI, Normocephalic Neck: Supple, No JVD, Negative Carotid Bruits Lungs: Clear to auscultation, Normal air movement Cardiovascular: Regular Rhythm, Normal S1, Normal S2, No murmurs, Tachycardic - Mild, heart rate 101 Abdomen: Bowel Sounds Present, Soft, Non Tender Extremities: No edema, Capillary Refill Less than 3 Seconds Skin: No rashes, No breakdown Musculoskeletal: No Tenderness to Palpation of Joints or Extremities Neurological: Cranial nerves II-XII grossly intact Psych/Mental Status: Anxious, Flat Affect Laboratory Results 05/04/20 16:55: Sodium 138, Potassium 3.8, Chloride 105, Carbon Dioxide 28.0, Anion Gap 5, BUN 9, Creatinine 0.69, Estim Creat Clear Calc 127.92, Est GFR (MDRD) Af Amer 136, Est GFR (MDRD) Non-Af 112, BUN/Creatinine Ratio 13.1, Glucose 84, Calcium 8.9, Total Bilirubin 0.50, AST 23, ALT 26, Alkaline Phosphatase 99, Total Protein 7.8, Albumin 3.6, Globulin 4.2, Albumin/Globulin Ratio 0.9 05/04/20 16:55: Ethyl Alcohol 4.0 Assessment/Plan All Active Problems Opiate dependence, continuous (Acute) Cocaine use (Acute) History of benzodiazepine use (Acute) Acute opioid withdrawal (Acute) 1. Acute opioid withdrawal -Will admit to MedSurg as part of [facility] program -Last use 9 AM 05/04/2020, patient refusing Subutex at this time, requesting supportive meds only -Will order supportive medication per protocol -Social work involved with patient's case in ER, will see [facility] tomorrow 2. Opioid dependence, continuous -Will collaborate with [facility] for continued support with detoxification process 3. Marijuana abuse -Patient states that she only smokes marijuana occasionally and has not smoked within the past several days. DVT prophylaxis-not indicated This patient was seen by DANAY WagnerC under the supervision of Dr. Leone. <Cara Alonso E - Last Filed: 05/04/20 18:58> History of Present Illness The patient is a 24 year old F [] Past Medical History Allergies No Known Allergies Allergy (Verified 05/04/20 15:24) - Physical Exam Vitals/I&O's: Vital Signs Temp Pulse Resp BP Pulse Ox 96.7 F L 101 H 16 136/102 H 97 05/04/20 18:20 05/04/20 18:20 05/04/20 18:20 05/04/20 18:20 05/04/20 18:20 Oxygen Delivery Method Room Air Weight: 245 lb Body Mass Index (BMI) 37.2 Laboratory Results 05/04/20 16:55: Sodium 138, Potassium 3.8, Chloride 105, Carbon Dioxide 28.0, Anion Gap 5, BUN 9, Creatinine 0.69, Estim Creat Clear Calc 127.92, Est GFR (MDRD) Af Amer 136, Est GFR (MDRD) Non-Af 112, BUN/Creatinine Ratio 13.1, Glucose 84, Calcium 8.9, Total Bilirubin 0.50, AST 23, ALT 26, Alkaline Phosphatase 99, Total Protein 7.8, Albumin 3.6, Globulin 4.2, Albumin/Globulin Ratio 0.9 05/04/20 16:55: Ethyl Alcohol 4.0 Assessment/Plan Hospitalist note: I am seeing this patient in conjunction with Divya Aldrich. I independently seen and examined the patient. History and physical and laboratory data reviewed and I concur with above admission and treatment plan. Patient presented to the emergency room because reportedly she has been still using opioids in spite of being under treatment with [facility] residential treatment. Actually patient was discharged from the hospital on April 23, 2020 after admission for acute opioid withdrawal. Patient was not compliant and refused to take Subutex during that admission. After discussion with the [facility], patient left the hospital AGAINST MEDICAL ADVICE on April 23, 2020 and she is supposed to go to [facility] the following Sunday which is April 26, 2020 for inpatient residential treatment. Patient is not interested in providing any history and she was sleeping throughout the encounter although she was able to answer questions. She refused to be admitted for detox using Subutex but she is willing to be admitted for detox using just the symptomatic treatment with the as needed medications. In the emergency department, her vital signs were stable. Her BMP and LFT was unremarkable. Blood alcohol level was 2 4. Urine drug screen is pending. - Physical Exam General: Alert, Oriented x3, No apparent distress. HEENT: Atraumatic, PERRLA, EOMI. Neck: Supple, No JVD, Negative Carotid Bruits, Trachea Midline, Thyroid Normal. Lungs: Clear to auscultation, Normal air movement, No rhonchi, No wheeze, No rales. Cardiovascular: Regular rate, Regular Rhythm, Normal S1, Normal S2, PMI Normal. Abdomen: Bowel Sounds Present, Soft, Non Tender, Non-Distended, No Hepato-splenomegaly. Extremities: No clubbing, No cyanosis, No edema Skin: No rashes, No breakdown Neurological: Cranial nerves are intact, neuro grossly intact Vital Signs are stable. Assessment and plan: #1 acute opiate withdrawal: Initiate opioid withdrawal protocol with as needed Tylenol, Catapres, Bentyl, Neurontin, Vistaril, Imodium, methocarbamol, Zofran and trazodone, consult [facility] program. Patient is refusing to use Subutex during this admission. #2 other chronic medical problems: Stable, continue current medications as above. This note was generated with [employer] dictation software. It may contain incorrect words, spelling, and punctuation that were not noted in checking the note before signing. Inpatient E&M: 37157 Init Hosp L2
--- NOTE | 2020-05-04 18:42 | ED.RN ---
dr norris in to see pt for admission. belongings list gone over. 2 large suitcases full and backpack sent with pt to floor.
[2020-05-04 18:58] VITALS: BP 129/76; PULSE 103; RESP 18; TEMP 37.9; O2SAT 95; BMI 37.6
[2020-05-04 19:08] VITALS: BMI 37.6
[2020-05-04 22:32] VITALS: TEMP 36.9
[2020-05-05 01:39] VITALS: BP 109/68; PULSE 72; RESP 16; TEMP 36.9; O2SAT 95
[2020-05-05 04:40] LABS: Amphetamine Urine VISTA NEGATIVE (<1000 ng/mL); Barbiturate Urine VISTA NEGATIVE (< 200 ng/mL); Benzodiazepine Urine VISTA POSITIVE (< 200 ng/mL); Cocaine Urine VISTA NEGATIVE (< 300 ng/mL); Ecstacy Urine VISTA NEGATIVE (< 500 ng/mL); Methadone Urine VISTA NEGATIVE (< 300 ng/mL); PCP Urine VISTA NEGATIVE (< 25 ng/mL); THC Urine VISTA NEGATIVE (< 50 ng/mL); Vista UDS pH Range 7
[2020-05-05 05:46] VITALS: BP 112/66; PULSE 74; RESP 16; TEMP 36.9; O2SAT 97
[2020-05-05] MEDS: Ondansetron 8 MG Tablet PO ×2 (08:48→20:14)
[2020-05-05] MEDS: Acetaminophen 500 MG Tablet PO ×2 (08:48→20:09)
[2020-05-05] MEDS: Methocarbamol 750 MG Tablet 1500 MG PO ×2 (08:48→17:19)
[2020-05-05] MEDS: Gabapentin 300 MG Capsule PO ×2 (08:48→17:19)
[2020-05-05 08:52] VITALS: BP 118/75; PULSE 77; RESP 16; TEMP 36.1; O2SAT 96
--- NOTE | 2020-05-05 09:25 | PCM.PN.HOSP ---
Patient Problems: Active and Suspected Problems Opiate dependence, continuous (Acute) Cocaine use (Acute) History of benzodiazepine use (Acute) Acute opioid withdrawal (Acute) Subjective: Symptomatically doing well, no issues overnight. Per review of the previous chart, she had presented to the hospital for detox April 21 she left [place] on the since she was not taking Subutex it was felt that there is no reason to keep her until her residential treatment placement on the . She was able to go to the residential treatment on her own however was kicked out because she tested positive for drugs on a urine drug screen. It seems that she was supposed to go to the [facility] inpatient residential treatment on the but she may not have gone until yesterday where it was found that she tested positive for narcotics and was sent here for detox. She continues to not want Subutex and is doing well with just the as needed medications. Vitals/I&O's: Vital Signs Temp Pulse Resp BP Pulse Ox 97.0 F L 77 16 118/75 96 05/05/20 08:52 05/05/20 08:52 05/05/20 08:52 05/05/20 08:52 05/05/20 08:52 Oxygen Delivery Method Room Air Weight: 247 lb 9.266 oz Body Mass Index (BMI) 37.6 Intake and Output for Last 24 Hours 05/03/20 05/04/20 05/05/20 23:59 23:59 23:59 Intake Total 0 / 0 700 / 700 Balance 0 / 0 700 / 700 General: Alert, Oriented x3, Cooperative, No apparent distress HEENT: Atraumatic, PERRLA, EOMI, Normocephalic Oral: Moist Mucosa Neck: Supple, No JVD Lungs: Clear to auscultation, Normal air movement, No rhonchi, No wheeze, No rales Cardiovascular: Regular rate, Regular Rhythm, Normal S1, Normal S2, No murmurs Abdomen: Soft, Non Tender, Non-Distended, No Hepato-splenomegaly Extremities: No edema, Capillary Refill Less than 3 Seconds Skin: No rashes, No breakdown Neurological: Neuro grossly intact, Sensory exam intact to light touch and pain Psych/Mental Status: Normal Affect, Appropriate Laboratory Results 05/04/20 16:55: Sodium 138, Potassium 3.8, Chloride 105, Carbon Dioxide 28.0, Anion Gap 5, BUN 9, Creatinine 0.69, Estim Creat Clear Calc 127.92, Est GFR (MDRD) Af Amer 136, Est GFR (MDRD) Non-Af 112, BUN/Creatinine Ratio 13.1, Glucose 84, Calcium 8.9, Total Bilirubin 0.50, AST 23, ALT 26, Alkaline Phosphatase 99, Total Protein 7.8, Albumin 3.6, Globulin 4.2, Albumin/Globulin Ratio 0.9 05/04/20 16:55: Ethyl Alcohol 4.0 05/05/20 04:15: Urine Opiates Screen POSITIVE H, Urine Methadone Screen NEGATIVE, Ur Barbiturates Screen NEGATIVE, Ur Phencyclidine Scrn NEGATIVE, Ur Amphetamines Screen NEGATIVE, U Methamphetamin-MDMA NEGATIVE, U Benzodiazepines Scrn POSITIVE H, Urine Cocaine Screen NEGATIVE, U Cannabinoids Screen NEGATIVE, Ur Drug Screen Comment Current Medications Acetaminophen (Acetaminophen 500 Mg Tablet) 500 mg PO Q4H PRN PRN PRN Reason: Temp > 100.4 F Last Admin: 05/05/20 08:48 Dose: 500 mg Documented by: Clonidine (Clonidine Hcl 0.1 Mg Tablet) 0.1 mg PO Q8H PRN PRN PRN Reason: RESTLESSNESS Dicyclomine HCl (Dicyclomine 10 Mg Capsule) 20 mg PO Q6H PRN PRN PRN Reason: Abdominal Discomfort Gabapentin (Gabapentin 300 Mg Capsule) 300 mg PO Q8H PRN PRN PRN Reason: moderate to severe anxiety Last Admin: 05/05/20 08:48 Dose: 300 mg Documented by: Hydroxyzine Pamoate (Hydroxyzine Rose 25 Mg Capsule) 50 mg PO Q6H PRN PRN PRN Reason: mild anxiety Loperamide HCl (Loperamide 2 Mg Capsule) 2 mg PO Q4H PRN PRN PRN Reason: LOOSE STOOLS Methocarbamol (Methocarbamol 750 Mg Tablet) 1,500 mg PO Q6H PRN PRN PRN Reason: MUSCLE SPASM Last Admin: 05/05/20 08:48 Dose: 1,500 mg Documented by: Nicotine (Nicotine 21 Mg Patch) 21 mg TD DAILY ELAINE Last Admin: 05/05/20 08:54 Dose: Not Given Documented by: Ondansetron HCl (Ondansetron 8 Mg Tablet) 8 mg PO Q8H PRN PRN PRN Reason: NAUSEA Last Admin: 05/05/20 08:48 Dose: 8 mg Documented by: Sodium Chloride (0.9% Saline Lock 10 Ml Syringe) 10 - 40 ml IV UD PRN PRN Reason: SALINE FLUSH Trazodone HCl (Trazodone 100 Mg Tablet) 100 mg PO QHS PRN PRN PRN Reason: INSOMNIA STROKE Vital Signs/Narrative: Vital Signs Temp Pulse Resp BP Pulse Ox 05/05/20 08:52 97.0 F L 77 16 118/75 96 05/05/20 05:46 98.5 F 74 16 112/66 97 Medical Necessity - Tobacco Use Smoking Status: Light Smoker (<10/day) Tobacco Use: Cigarettes, - Assessment/Plan All Active Problems Opiate dependence, continuous (Acute) Cocaine use (Acute) History of benzodiazepine use (Acute) Acute opioid withdrawal (Acute) 1. Acute opiate withdrawal/marijuana abuse -discussed cessation of marijuana -Continue with opiate withdrawal protocol. She feels that Subutex makes her withdrawal symptoms worsen does not want to take it -She has signed the ramp agreement therefore we will just let her do the as needed symptomatic treatments and will see if [facility] is willing to take her back into the inpatient rehab unit in the next day or 2 -She states that she does inject and has never been tested for hepatitis or HIV. She does consent to these tests and she does not think that they will come back positive as she is very careful about using her own needles. DVT: Ambulation Inpatient E&M: 23093 Subs Hosp L2
[2020-05-05 10:27] LABS: HIV - WCH Non-Reactive (Nonreactive)
--- NOTE | 2020-05-05 11:05 | ADDICTION ---
This commercial underwriter attempted to meet with PT in her room on two different occasions. PT woke briefly the first time but did not answer verbally respond outside of moans and grunts. The PT did not wake during the second attempt. This commercial underwriter will attempt to meet with PT at next visit on 05.06.2020
[2020-05-05 13:41] VITALS: BP 134/73; PULSE 63; RESP 16; TEMP 36.5; O2SAT 97
--- NOTE | 2020-05-05 14:04 | CASEMGMT ---
Addendum entered by Anabel Christy 05/05/20 14:53: Kitty had also informed this worker that since pt was at [facility] for detox and is she wasn't feeling up to the court meeting today, it wasn't mandated for pt to appear via zoom and Kitty wanted to make sure pt was aware of this. SW updated pt of this, pt states she still wants to participate in the Zoom meeting. Addendum entered by Anabel Christy 05/05/20 14:38: SW updated pt that pt's Documentation Liaison Kitty asked to be updated on pt's treatment while at [facility]. Pt signed Release of information, placed on pt's chart. Addendum entered by Anabel Christy 05/05/20 14:31: ARLEEN did place a call to pt's Documentation Liaison Kitty to confirm she is aware pt is at [facility]. Kitty confirms she spoke with RN and is aware pt is at [facility] for detox. Kitty states the Courts are also aware. Kitty confirms that pt's baby is currently with pt's mother who has temporary custody. Kitty had questions regarding [facility] detox program and SW answered questions. Original Note: Social Work Note SW reviewed chart, RN charted that pt had 9 month old baby. ARLEEN spoke with Manuel at [facility]. Manuel states pt came from their residential program, is unsure about pt's baby. Manuel tried to meet with pt twice today but was not able to do so. ARLEEN spoke with RN. Pt has Zoom Meeting today regarding pt's baby and black top spreader machine operator's name is Kitty. SW in to speak with pt. Pt states that her baby is currently with pt's mother who has temporary custody. Pt states her mom is good, safe, sober environment for her baby. Pt states her mom has had custody since the baby was two weeks ago. Pt confirms that her Documentation Liaison is Kitty ([facility]) and Kitty is aware pt is currently at [facility]. Pt also confirms she has a Zoom Meeting today regarding her baby. Pt confirms that she came from [facility] and would like to return there at discharge. Pt states before she went to [facility] she was living with someone and had supervised visits with her baby. Kitty ([employer] black top spreader machine operator #[phone].) Anabel Christy HATCHERY MANAGER, REPAIR SUPERVISOR
[2020-05-05 17:11] VITALS: BP 137/96; PULSE 99; RESP 18; TEMP 36.7; O2SAT 99
[2020-05-05] MEDS: cloNIDine HCl 0.1 MG Tablet PO (17:19)
[2020-05-05] MEDS: Buprenorphine HCl 2 MG TAB.SUBL 4 MG SL (18:00)
[2020-05-05] MEDS: hydrOXYzine PAM 25 MG Capsule 50 MG PO (20:08)
[2020-05-05] MEDS: Dicyclomine 10 MG Capsule 20 MG PO (20:08)
[2020-05-05] MEDS: Loperamide 2 MG Capsule PO (20:17)
--- NOTE | 2020-05-05 21:12 | NURSING ---
Pt signed AMA papers. Fidencio JOSE ANTONIO is going to walk pt out since security is busy with life flight. She has suitcases to garbage pick up worker in security. Earlier she had indicated to Viola HARRIS that she wanted to know what would happen if she went out and did heroin. States she is feeling worse after subutex. Hospitalist notified.
[2020-05-06 07:07] LABS: HEPATITIS B SURFACE AG Negative (Negative); Hepatitis A IgM Antibody Negative (Negative); Hepatitis B Core AB IgM Negative (Negative)
[2020-05-06 08:52] LABS: Hep C Antibodies <0.1 s/co ratio (0.0-0.9)
--- NOTE | 2020-05-06 09:28 | CASEMGMT ---
Social Work Note Pt left AMA yesterday. SW placed a call to pt's Clinical Microbiologist Kitty and updated her. SW updated Manuel with [employer]. Anabel Christy BOAT PILOT, POULTRY HATCHERY MAN
== END 2020-05-05 21:15 | disposition left against medical advice (07) | DRG 770 ==
LOC: ED 17:06 → MS3 05-05 07:04
PROVIDERS: Admitting Provider Hospitalist; Emergency Provider Emergency Medicine; Visit Provider Family Medicine
DX: F11.23 Opioid dependence with withdrawal (principal); F14.90 Cocaine use, unspecified, uncomplicated; F12.10 Cannabis abuse, uncomplicated; E66.9 Obesity, unspecified; F17.210 Nicotine dependence, cigarettes, uncomplicated; Z68.37 Body mass index [BMI] 37.0-37.9, adult
CPT/HCPCS: 80053; 80074; 80307; 82077; 86703; 99218; 99283; 99406; G0378